=== PATIENT | male | born 1965 | race Caucasian/White ===

== ENCOUNTER → 2022-12-23 16:11 | Outpatient (CLI) | payer BC, SELFPAY ==
--- NOTE | ~2022-12-23 | XR_ITS ---
XR wrist RT w scaphoid DATE: 12/23/2022 16:30 INDICATION: Right wrist pain TECHNIQUE: 5 views COMPARISON: None FINDINGS: There is spurring and severe narrowing at the radial scaphoid joint consistent with severe osteoarthritis. There is osteoarthritic spurring at the triscaphe joint. There is subtle minimal chondrocalcinosis at the triangular cartilage. No fracture or dislocation is evident. IMPRESSION: Severe osteoarthritic change at the radial scaphoid joint Osteophyte is at triscaphe joint Subtle triangular cartilage chondrocalcinosis Reviewed, dictated and finalized at location B.
== END ==
PROVIDERS: PCP Family Medicine; Visit Provider Family Medicine
DX: M25.531 Pain in right wrist (principal); M19.031 Primary osteoarthritis, right wrist; M25.731 Osteophyte, right wrist; M11.231 Other chondrocalcinosis, right wrist
CPT/HCPCS: 73110

== ENCOUNTER 2023-03-18 07:31 | Outpatient (CLI) | payer BC, SELFPAY ==
--- NOTE | ~2023-03-18 | MR_ITS ---
MRI of the right wrist Technique: Coronal T1 weighted and proton density fat sat images, and axial and sagittal proton-densi ty and proton-density fat-sat images were acquired. Following intravenous administration of 18 cc Mul tiHance gadolinium, T1-weighted fat-sat imaging was performed in the axial, coronal, and sagittal juan kathy. Clinical History: Osteoarthritis Findings: Scapholunate ligament is probably intact, with increased signal. No widening of the cylindr ical. Ventricular ligament is grossly intact. Central articular disc of the TFCC appears intact. There is remodeling of the articular surface of the distal radius with articular relation scaphoid wi th joint space narrowing in this region. There is extensive marrow edema of the distal radius, scapho id, lunate, with more mild edema in the hamate and capitate. There is subchondral bone cyst in the ca pitate and hamate. Small radial carpal joint effusion present. No acute fracture identified. Flexor tendons in the carpal tunnel are unremarkable. Extensor tendons are intact. No soft tissue mas s or fluid collection evident. There is a small to moderate joint effusion of the distal radioulnar j oint. IMPRESSION: Findings most compatible severe osteoarthritis involving the radiocarpal/radial scaphoid articulation s, as well as the midcarpal articulations, as detailed above. Inflammatory arthropathy felt to be les s likely given overall appearance. Questionable clinical symptomatology and relevant labwork advised however. DRUJ and radiocarpal joint effusions, likely reactive. Reviewed, dictated and finalized at location . CULTIVATOR IMPRESSION: Findings most compatible severe osteoarthritis involving the radiocarpal/radial scaphoid articulations, as well as the midcarpal articulations, as detailed ab ove. Inflammatory arthropathy felt to be less likely given overall appearance. Questionable clinical symptomatology and relevant labwork advised however. DRUJ and radiocarpal joint effusions, likely reactive.
== END 2023-03-18 07:32 | disposition home or self-care (01) ==
LOC: ANHIMG 07:32
PROVIDERS: PCP Family Medicine; Visit Provider Physician Assistant Surgical
DX: M19.031 Primary osteoarthritis, right wrist (principal); M25.431 Effusion, right wrist
CPT/HCPCS: 73223; A9577